=== PATIENT | female | born 1965 | race Caucasian/White ===

== ENCOUNTER → 2017-05-10 | Outpatient (CLI) | payer MEDICARE, BC ==
[2016-06-25 15:06] VITALS: BP 109/66
[~2017-05-10] MED LIST: ALBU2.5V5 IH; ALBU8.5H6 INH; ALBUTEROL IH; AMOX1TAB61 PO; ASPI-630 PO; Amoxicillin/Potassium Clav PO; BUDE10.2 IH; BUDE10.22 IH; CYCL10TA2 PO; Clotrimazole MM; DIAZ2TAB3 PO; DIAZ5TAB4 PO; DOCU-109 PO; DOXY100T PO; DULO20CA PO; FERR140T2 PO; FERR324T5 PO; FLUO10CA13 PO; FLUO20CA16 PO; FLUT16SP2 NS; FLUT1DIS IH; FLUT1DIS3 IH; Hydrochlorothiazide PO; IBUP-1060 PO; IPRA3AMP IH; IRON18TA PO; Iron PO; LEVO50TA5 PO; LIDO700A27 TP; LIDO700A4 TP; METO5TAB PO; METO5TAB55 PO; MOME13HF2 INH; MORP30CA14 PO; MORP30TA83 PO; OMEP20CA9 PO; OMEP40CA5 PO; OXYC-328 PO; OXYC15TA PO; OXYC30TA64 PO; PRED-220 PO; PROAIR HFA8.5 GM IH; RANI150T2 PO; Spironolactone PO; VENTOLIN HFA18 GM IH; lidocaine patch
--- NOTE | 2017-05-10 14:00 | KCIC ---
MRI of the cervical spine without contrast 05/10/2017 CLINICAL HISTORY: Chronic neck pain with pain in left shoulder. TECHNIQUE: Unenhanced T1-weighted, T2-weighted and inversion recovery sagittal and gradient echo and T2-weighted axial images of the cervical spine were obtained. FINDINGS: Comparison study is dated 03/20/2013. Minimal lateral curvature of the cervical spine is seen convex to the left. There is mild straightening of the normal cervical lordosis. Degenerative signal changes are seen involving all of the disks of the cervical spine. The marrow signal of the visualized bony structures is within normal limits. The cervical spinal cord is normal in morphology, position, and signal characteristics. On the axial images mild degenerative changes are seen involving the cervical disc spaces. These consist of minimal to mild generalized disc bulges and degenerative changes involving the uncovertebral and facet joints. These findings do not result in significant central spinal canal or neural foraminal stenosis at any level. No focal disc herniation is seen. Since the previous examination there has been no significant interval change. IMPRESSION: Relatively mild degenerative changes are seen throughout the cervical spine. These findings do not result in significant central spinal canal or neural foraminal stenosis at any level. Electronically signed by: Silvino Norman MD (05/10/2017 1:57 PM)
== END | disposition home or self-care (01) ==
LOC: KCIC MRI 10:04
PROVIDERS: ATTEND Family Medicine
DX: M47.892 Other spondylosis, cervical region (principal); M25.512 Pain in left shoulder
CPT/HCPCS: 72141

== ENCOUNTER → 2018-06-02 | Outpatient (CLI) | payer BC, MEDICARE | END | disposition home or self-care (01) | LOC: KCIC MRI 15:16 | DX: M47.892 Other spondylosis, cervical region (principal); I10 Essential (primary) hypertension; E78.00 Pure hypercholesterolemia, unspecified; E03.9 Hypothyroidism, unspecified; J44.9 Chronic obstructive pulmonary disease, unspecified; K21.9 Gastro-esophageal reflux disease without esophagitis | CPT/HCPCS: 72141 ==

== ENCOUNTER → 2020-01-08 | Outpatient (CLI) | payer OTHER ==
[2016-06-25 15:06] VITALS: BP 109/66
[~2020-01-08] MED LIST changes: +ALBU2.5V8 IH; -FERR140T2 PO; +FERR140T3 PO; -IPRA3AMP IH; +IPRA3AMP29 IH; +OMEP20CA16 PO; -OMEP20CA9 PO; +OMEP40CA45 PO; -OMEP40CA5 PO; -OXYC-328 PO; +OXYC1TAB22 PO; -PROAIR HFA8.5 GM IH
== END | disposition home or self-care (01) ==
LOC: PF 09:25
PROVIDERS: ATTEND Surgery
DX: J44.9 Chronic obstructive pulmonary disease, unspecified (principal)
CPT/HCPCS: 94010

== ENCOUNTER 2020-04-19 13:29 | Emergency (ER) | payer SELFPAY ==
[~2020-04-19] VITALS: Ht 170.2 cm; Wt 113.0 kg
[~2020-04-19 13:29] MED LIST changes: -OXYC15TA PO; +OXYC15TA3 PO
[2020-04-19] MEDS ORDERED: IV NORMAL SALINE 1000ML BAG 1,000 ML IV ONE (13:45)
[2020-04-19 13:57] LABS: BASE EXCESS ABG -7 mmol/L (-3-3); HCO3 ABG 22 mmol/L (21-28); PO2 ABG 442 mmHg (75-108); SAT O2 ABG 100 % (92-99)
[2020-04-19 13:59] LABS: BASO % 0 % (0-3); EOS # 0.5 x10^3/uL (0.0-0.7); EOS % 4 % (0-3); HEMATOCRIT 31.6 % (36.0-47.0); HEMOGLOBIN 10.4 g/dL (12.0-15.5); LYMPH # 2.6 x10^3/uL (1.0-4.8); LYMPH % 21 % (24-48); MEAN CORPUSCULAR HEMOGLOBIN 30 pg (25-35); MEAN CORPUSCULAR HGB CONC 33 g/dL (31-37); MEAN CORPUSCULAR VOLUME 90 fL (79-100); MONO # 0.6 x10^3/uL (0.0-1.1); MONO % 5 % (0-9); NEUT # 8.7 x10^3/uL (1.8-7.7); NEUT % 70 % (31-73); PLATELET COUNT 385 x10^3/uL (140-400); RED BLOOD COUNT 3.51 x10^6/uL (3.50-5.40); RED CELL DISTRIBUTION WIDTH 15.5 % (11.5-14.5); WHITE BLOOD COUNT 12.5 x10^3/uL (4.0-11.0)
[2020-04-19 14:01] LABS: PCO2 ABG 60 mmHg (35-46)
[2020-04-19 14:01] LABS: BILIRUBIN,URINE NEGATIVE (NEG); CLARITY,URINE CLOUDY; COLOR,URINE YELLOW; NITRITE,URINE NEGATIVE (NEG); PROTEIN,URINE NEGATIVE (NEG-TRACE); UROBILINOGEN,URINE 0.2 mg/dL (0.2 mg/dL)
--- NOTE | 2020-04-19 14:01 | RAD ---
PORTABLE CHEST 1V 04/19/2020 1:40 PM INDICATION: Aspiration COMPARISON: 06/25/2016 TECHNIQUE: Portable frontal view of the chest is provided. FINDINGS: The cardiomediastinal silhouette is within normal limits. Mild chronic interstitial changes are noted. There may be increase interstitial airspace disease at the left lung base. There are no significant pleural effusions. There is no pulmonary vascular congestion. No pneumothorax. No suspicious osseous abnormality. IMPRESSION: Increased interstitial airspace disease at the left lung base may represent interstitial pneumonitis versus subsegmental atelectasis. Short-term follow-up two-view chest radiograph may be of benefit. Electronically signed by: Unique Montana MD (04/19/2020 1:57 PM) LINDA
[2020-04-19 14:02] LABS: FIO2 ABG 100
[2020-04-19 14:05] LABS: BARBITURATES NEG (NEG); BENZODIAZEPINES NEG (NEG); CANNABINOIDS NEG (NEG); COCAINE NEG (NEG); METHADONE NEG (NEG); OPIATES POS (NEG); PHENCYCLIDINE NEG (NEG)
[2020-04-19 14:07] LABS: AMPHETAMINE/METHAMPHETAMINE NEG (NEG)
[2020-04-19 14:08] LABS: CALCIUM 8.6 mg/dL (8.5-10.1); CREATININE 1.3 mg/dL (0.6-1.0); GFR 42.7; POTASSIUM 4.2 mmol/L (3.5-5.1)
[2020-04-19 14:11] LABS: PROTHROMBIN TIME PATIENT 13.6 SEC (11.7-14.0)
[2020-04-19 14:15] LABS: ALBUMIN 2.6 g/dL (3.4-5.0); ALBUMIN/GLOBULIN RATIO 0.6 (1.0-1.7); MAGNESIUM 1.9 mg/dL (1.8-2.4); TOTAL BILIRUBIN 0.2 mg/dL (0.2-1.0)
[2020-04-19 14:19] LABS: HYALINE CASTS, URINE MODERATE /HPF; SQUAMOUS EPITHELIAL CELL,UR MOD /LPF
[2020-04-19 14:21] LABS: AMORPHOUS SEDIMENT,UR PRESENT /HPF; BACTERIA,URINE 0 /HPF (0-FEW); RBC,URINE 0 /HPF (0-2)
--- NOTE | 2020-04-19 14:43 | PHYS DOC ---
Past Medical History Past Medical History: Bronchitis, COPD, Pneumonia, Other Additional Past Medical Histor: chronic pain, thyroid nodule Past Surgical History: Cholecystectomy, , Other Additional Past Surgical Histo: lap band removal, lung biopsy, hernia repair, Smoking Status: Never Smoker Alcohol Use: None Drug Use: None General Adult EDM: Chief Complaint: ALTERED MENTAL STATUS HPI: HPI: Patient is a 54 year old [f__sex] who presents with [] Review of Systems: Review of Systems: Constitutional: Denies fever or chills. [] Eyes: Denies change in visual acuity. [] HENT: Denies nasal congestion or sore throat. [] Respiratory: Denies cough or shortness of breath. [] Cardiovascular: Denies chest pain or edema. [] GI: Denies abdominal pain, nausea, vomiting, bloody stools or diarrhea. [] : Denies dysuria. [] Musculoskeletal: Denies back pain or joint pain. [] Integument: Denies rash. [] Neurologic: Denies headache, focal weakness or sensory changes. [] Endocrine: Denies polyuria or polydipsia. [] Lymphatic: Denies swollen glands. [] Psychiatric: Denies depression or anxiety. [] Heart Score: Risk Factors: Risk Factors: DM, Current or recent (<one month) smoker, HTN, HLP, family history of CAD, obesity. Risk Scores: Score 0 - 3: 2.5% MACE over next 6 weeks - Discharge Home Score 4 - 6: 20.3% MACE over next 6 weeks - Admit for Clinical Observation Score 7 - 10: 72.7% MACE over next 6 weeks - Early Invasive Strategies Current Medications: Current Medications Medications (Trade) Dose Ordered Sig/Jadiel Start Time Stop Time Status Last Admin Dose Admin Sodium Chloride 1,000 ml @ 1,000 mls/hr 1X ONCE 04/19/20 13:45 04/19/20 14:44 04/19/20 13:49 1,000 MLS/HR Allergies: Allergies: Allergies Coded Allergies Type Severity Reaction Last Updated Verified codeine phosphate Adverse Reaction Intermediate Nausea 12/16/15 Yes Physical Exam: PE: Constitutional: Well developed, well nourished, no acute distress, non-toxic appearance. [] HENT: Normocephalic, atraumatic, bilateral external ears normal, oropharynx moist, no oral exudates, nose normal. [] Eyes: PERRLA, EOMI, conjunctiva normal, no discharge. [] Neck: Normal range of motion, no tenderness, supple, no stridor. [] Cardiovascular:Heart rate regular rhythm, no murmur [] Lungs & Thorax: Bilateral breath sounds clear to auscultation [] Abdomen: Bowel sounds normal, soft, no tenderness, no masses, no pulsatile masses. [] Skin: Warm, dry, no erythema, no rash. [] Back: No tenderness, no CVA tenderness. [] Extremities: No tenderness, no cyanosis, no clubbing, ROM intact, no edema. [] Neurologic: Alert and oriented X 3, normal motor function, normal sensory function, no focal deficits noted. [] Psychologic: Affect normal, judgement normal, mood normal. [] Current Patient Data: Labs: Laboratory Tests Test 04/19/20 13:30 04/19/20 13:32 04/19/20 13:34 White Blood Count 12.5 x10^3/uL (4.0-11.0) H Red Blood Count 3.51 x10^6/uL (3.50-5.40) Hemoglobin 10.4 g/dL (12.0-15.5) L Hematocrit 31.6 % (36.0-47.0) L Mean Corpuscular Volume 90 fL (79-100) Mean Corpuscular Hemoglobin 30 pg (25-35) Mean Corpuscular Hemoglobin Concent 33 g/dL (31-37) Red Cell Distribution Width 15.5 % (11.5-14.5) H Platelet Count 385 x10^3/uL (140-400) Neutrophils (%) (Auto) 70 % (31-73) Lymphocytes (%) (Auto) 21 % (24-48) L Monocytes (%) (Auto) 5 % (0-9) Eosinophils (%) (Auto) 4 % (0-3) H Basophils (%) (Auto) 0 % (0-3) Neutrophils # (Auto) 8.7 x10^3/uL (1.8-7.7) H Lymphocytes # (Auto) 2.6 x10^3/uL (1.0-4.8) Monocytes # (Auto) 0.6 x10^3/uL (0.0-1.1) Eosinophils # (Auto) 0.5 x10^3/uL (0.0-0.7) Basophils # (Auto) 0.0 x10^3/uL (0.0-0.2) Prothrombin Time 13.6 SEC (11.7-14.0) Prothrombin Time INR 1.1 (0.8-1.1) Activated Partial Thromboplast Time 36 SEC (24-38) Sodium Level 135 mmol/L (136-145) L Potassium Level 4.2 mmol/L (3.5-5.1) Chloride Level 98 mmol/L (98-107) Carbon Dioxide Level 26 mmol/L (21-32) Anion Gap 11 (6-14) Blood Urea Nitrogen 19 mg/dL (7-20) Creatinine 1.3 mg/dL (0.6-1.0) H Estimated GFR (Cockcroft-Gault) 42.7 BUN/Creatinine Ratio 15 (6-20) Glucose Level 127 mg/dL (70-99) H Calcium Level 8.6 mg/dL (8.5-10.1) Magnesium Level 1.9 mg/dL (1.8-2.4) Total Bilirubin 0.2 mg/dL (0.2-1.0) Aspartate Amino Transferase (AST) 17 U/L (15-37) Alanine Aminotransferase (ALT) 18 U/L (14-59) Alkaline Phosphatase 149 U/L (46-116) H Troponin I Quantitative < 0.017 ng/mL (0.000-0.055) XD-Hob-S-Type Natriuretic Peptide 227 pg/mL (0-124) H Total Protein 7.0 g/dL (6.4-8.2) Albumin 2.6 g/dL (3.4-5.0) L Albumin/Globulin Ratio 0.6 (1.0-1.7) L Urine Collection Type U cath Urine Color Yellow Urine Clarity Cloudy Urine pH 5.0 (<5.0-8.0) Urine Specific [place] 1.025 (1.000-1.030) Urine Protein Negative mg/dL (NEG-TRACE) Urine Glucose (UA) Negative mg/dL (NEG) Urine Ketones (Stick) Negative mg/dL (NEG) Urine Blood Negative (NEG) Urine Nitrite Negative (NEG) Urine Bilirubin Negative (NEG) Urine Urobilinogen Dipstick 0.2 mg/dL (0.2 mg/dL) Urine Leukocyte Esterase Small (NEG) Urine RBC 0 /HPF (0-2) Urine WBC 11-20 /HPF (0-4) Urine Squamous Epithelial Cells Mod /LPF Urine Amorphous Sediment Present /HPF Urine Bacteria 0 /HPF (0-FEW) Urine Hyaline Casts Moderate /HPF Urine Mucus Mod /LPF Urine Opiates Screen Pos (NEG) Urine Methadone Screen Neg (NEG) Urine Barbiturates Neg (NEG) Urine Phencyclidine Screen Neg (NEG) Urine Amphetamine/Methamphetamine Neg (NEG) Urine Benzodiazepines Screen Neg (NEG) Urine Cocaine Screen Neg (NEG) Urine Cannabinoids Screen Neg (NEG) Urine Ethyl Alcohol Neg (NEG) O2 Saturation 100 % (92-99) H Arterial Blood pH 7.19 (7.35-7.45) *L Arterial Blood pCO2 at Patient Temp 60 mmHg (35-46) *H Arterial Blood pO2 at Patient Temp 442 mmHg (75-108) H Arterial Blood HCO3 22 mmol/L (21-28) Arterial Blood Base Excess -7 mmol/L (-3-3) L FiO2 100 Laboratory Tests 04/19/20 13:30 Laboratory Tests 04/19/20 13:30 Vital Signs: Vital Signs Date Time Temp Pulse Resp B/P (MAP) Pulse Ox O2 Delivery O2 Flow Rate FiO2 04/19/20 14:20 98 BiPAP/CPAP 04/19/20 14:00 96 123/67 (85) 04/19/20 13:45 15.0 04/19/20 13:36 98.9 20 98.9 EKG: EKG: [] Radiology/Procedures: Radiology/Procedures: [] Course & Med Decision Making: Course & Med Decision Making Pertinent Labs and Imaging studies reviewed. (See chart for details) At 1730, patient was awake alert, she was able to get up and walk without any assistance, her vital signs was stable, patient denies suicidal ideation, patient denies any abdominal pain, no nausea no vomiting, no chest pain, no trouble breathing. Patient denied headache. Patient says she overdosed on her muscle relaxer by accident. Patient said she took her narcotic pain medication 1 hour before she took 3 different types of muscle relaxer together then she went out with her . Patient was advised that she cannot take all of her muscle relaxer together at the same time. Patient was advised to follow-up with her doctor who prescribed her pain medication and her muscle relaxer for further instruction. Patient's came here to take her home. Nicko Disclaimer: Nicko Disclaimer: This electronic medical record was generated, in whole or in part, using a voice recognition dictation system. Departure Departure Impression: Primary Impression: Accidental drug overdose Disposition: HOME, SELF-CARE Condition: IMPROVED Referrals: UNKNOWN PCP NAME (PCP) please follow up with your doctor for reevaluation on Tuesday. 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 Patient Instructions: Overdose, Accidental HIPOLITO HARP DO Apr 19, 2020 14:43
[2020-04-19 15:57] LABS: BASE EXCESS ABG -5 mmol/L (-3-3); HCO3 ABG 21 mmol/L (21-28); PCO2 ABG 45 mmHg (35-46); PO2 ABG 139 mmHg (75-108); SAT O2 ABG 98 % (92-99)
[2020-04-19 16:00] LABS: FIO2 ABG 40
[2020-04-19 17:30] VITALS: BP 148/89
--- NOTE | 2020-04-20 04:25 | EKG ---
[facility] [address] [place] [address] Test Date: 2020-04-19 Test Time: 13:35:00 Pat Name: JASMEET DENTON Department: Room: Gender: F [employer] Operator: : 1965 Requested By: HIPOLITO HARP Order Number: [id number] Reading MD: Measurements Intervals [place] Rate: 109 P: -11 DC: 156 QRS: 11 QRSD: 86 T: 27 QT: 378 QTc: 511 Interpretive Statements SINUS TACHYCARDIA R-S TRANSITION ZONE IN V LEADS DISPLACED TO THE RIGHT OTHERWISE NORMAL ECG RI6.02 No previous ECG available for comparison
== END 2020-04-19 17:56 | disposition home or self-care (01) ==
LOC: ER 13:29
DX: T40.2X1A Poisoning by other opioids, accidental (unintentional), initial encounter (principal); R11.0 Nausea; J44.9 Chronic obstructive pulmonary disease, unspecified; G89.29 Other chronic pain; Z90.49 Acquired absence of other specified parts of digestive tract; Z98.890 Other specified postprocedural states; Z88.5 Allergy status to narcotic agent; Y92.89 Other specified places as the place of occurrence of the external cause
CPT/HCPCS: 36415; 36600; 71045; 80053; 80307; 81001; 82805; 83735; 83880; 84484; 85025; 85610; 85730; 87086; 93005; 94660; 99285; G0480; J7030; 82962